=== PATIENT | female | born 1985 | race Caucasian/White ===

== ENCOUNTER 2018-01-18 05:19 | Emergency (ER) | payer BC ==
[~2018-01-18] VITALS: Ht 175.3 cm; Wt 101.6 kg
[2018-01-18 05:23] VITALS: Ht 175.3 cm; Wt 101.6 kg
[2018-01-18 06:23] LABS: BASOPHIL % 0.5 % (0-2); PLATELET COUNT 326 x10^3mcL (130-400); RED CELL DISTRIBUTION WIDTH 13.7 % (11.5-14.5)
[2018-01-18 07:59] LABS: UA SPECIFIC GRAVITY 1.025 (1.005-1.035); microscopic required? YES; urine erythrocyte 3+ (NEGATIVE)
[2018-01-18 08:11] VITALS: BP 131/93
== END 2018-01-18 08:11 | disposition home or self-care (01) ==
LOC: ED 05:19
PROVIDERS: Emergency Medicine Emergency Medical Services
DX: N39.0 Urinary tract infection, site not specified (principal); N93.9 Abnormal uterine and vaginal bleeding, unspecified; I10 Essential (primary) hypertension
CPT/HCPCS: 36415